=== PATIENT | female | born 1955 | race Caucasian/White ===

== ENCOUNTER → 2019-07-26 11:00 | Outpatient (BNVA) | payer BC, SELFPAY | PROVIDERS: Visit Provider Nurse Practitioner Family | DX: E03.9 Hypothyroidism, unspecified (principal); R19.7 Diarrhea, unspecified | CPT/HCPCS: 81001; 84443 ==

== ENCOUNTER → 2019-08-03 08:07 | Outpatient (BNVA) | payer BC, SELFPAY | PROVIDERS: Visit Provider Nurse Practitioner Family | DX: N02.9 Recurrent and persistent hematuria with unspecified morphologic changes (principal) | CPT/HCPCS: 81001; 87077; 87086; 87186; 87505; 88112 ==

== ENCOUNTER → 2019-12-27 16:16 | Outpatient (BNVA) | payer BC, SELFPAY | PROVIDERS: Visit Provider Nurse Practitioner Family | DX: R31.9 Hematuria, unspecified (principal); E03.9 Hypothyroidism, unspecified; E66.9 Obesity, unspecified; E55.9 Vitamin D deficiency, unspecified; Z79.899 Other long term (current) drug therapy; K21.9 Gastro-esophageal reflux disease without esophagitis; E78.2 Mixed hyperlipidemia | CPT/HCPCS: 80053; 80061; 82306; 83036; 84443; 85025; 87077; 87086; 87186; 88112; 88175 ==

== ENCOUNTER 2020-03-31 14:11 | Outpatient (CLI) | payer BC, SELFPAY ==
--- NOTE | 2020-03-31 14:30 | MM_ITS ---
WS: [id number] Exam: [id number] Date/Time of Exam: 03/31/2020 2:32 PM Reason For Exam: breast cancer screening VIEWS: MLO and CC views both breasts. Comparison made with prior exam of 09/14/2013. Findings: There was no sign of mass, architectural distortion or suspicious calcification in either breast. Sc attered fibroglandular densities MM/[id number] Impression: BI-RADS: 2-Benign FOLLOW-UP: 1 Year Follow-up This mammogram was also analyzed by the Computer Aided Detection System R2 Imag e Embossing Press Operator.
== END 2020-03-31 14:12 | disposition home or self-care (01) ==
LOC: RADSHAW 14:15
PROVIDERS: PCP Nurse Practitioner Family; Visit Provider Nurse Practitioner Family
DX: Z12.31 Encounter for screening mammogram for malignant neoplasm of breast (principal)
CPT/HCPCS: 77067

== ENCOUNTER → 2020-04-24 00:01 | Outpatient (BNVA) | payer BC, SELFPAY | PROVIDERS: PCP Nurse Practitioner Family; Visit Provider Nurse Practitioner Family | DX: E03.9 Hypothyroidism, unspecified (principal); E66.09 Other obesity due to excess calories; Z68.30 Body mass index [BMI] 30.0-30.9, adult | CPT/HCPCS: 84443 ==

== ENCOUNTER → 2021-10-26 09:37 | Outpatient (BNVA) | payer BC, SELFPAY | PROVIDERS: PCP Nurse Practitioner Family; Visit Provider Nurse Practitioner | DX: Z00.00 Encounter for general adult medical examination without abnormal findings (principal); Z12.11 Encounter for screening for malignant neoplasm of colon; L40.9 Psoriasis, unspecified | CPT/HCPCS: 80053; 80061; 82306; 84443; 85025 ==

== ENCOUNTER 2022-01-28 06:28 | Day surgery (SDC) | payer BC, SELFPAY ==
[2022-01-26 09:41] VITALS: BMI 32.1
--- NOTE | 2022-01-28 06:47 | P.HP_ITS ---
Same Day Surgery H&P Indication for Procedure/HPI DATE OF PROCEDURE: January 28, 2022 CHIEF COMPLAINT/INDICATIONFOR SURGICAL PROCEDURE: Screening colonoscopy PREOP DIAGNOSIS: Screening colonoscopy PLANNED PROCEDURE: Operation Date: 01/28/22 08:00 Proposed Procedures p Colonoscopy(Not Applicable) - Emil Fernandez MD 11/05/2021 This is a pleasant 65 years old female patient had a previous colonoscopy about 11 years ago and was normal.? She denies any bleeding per rectum or change in bowel movements or history of colon cancer.She has history of hemorrhoids. Patient is referred to me to discuss screening colonoscopy Interim history 01/28/2022 Patient comes today for screening colonoscopy ROS All systems have been reviewed negative except as for the above or per problem list. Medications/Allergies* Home Medications Medication Instructions Recorded Confirmed Type ascorbate calcium (vitamin C) 500 500 mg PO DAILY 12/27/19 01/28/22 History mg tablet cranberry 400 mg capsule 400 mg PO DAILY 12/27/19 01/28/22 History cholecalciferol (vitamin D3) 25 25 mcg PO ONCE 11/05/21 01/28/22 History mcg (1,000 unit) capsule fish oil 1 tab as directed DAILY 11/05/21 01/28/22 History Allergies/Adverse Reactions Allergy/AdvReac Type Severity Reaction Status Date / Time prednisone Allergy nausea, Verified 01/28/22 06:52 vomiting and diarrhea Pertinent History/Comorbid Conditions* Medical History (Updated 11/08/21 @ 08:57 by Emil Fernandez MD) Breast cancer screening by mammogram GERD (gastroesophageal reflux disease) Hematuria Hypothyroid Influenza vaccination declined by patient Patient believes this causes her to be ill Medication management Migraine with aura Mixed hyperlipidemia Obesity Psoriasis Vitamin D deficiency Vitamin D deficiency Wellness examination Surgical History (Updated 07/05/19 @ 13:46 by GONZÁLEZ Oliveros) S/P appendectomy S/P cholecystectomy S/P tubal ligation Social History Smoking and tobacco status: never smoked Second hand smoke exposure: No Smoking risk assessment/counseling performed?: No Alcohol intake: never Desire information about alcohol rehabilitation?: No Counseling given: No Desire information about substance/drug rehabilitation?: No Counseling given: No Pertinent Exam Findings alert, oriented x 3, regular rate & rhythm and procedure specific exam findings (Abdominal exam nontender nondistended soft) Recommendations Surgery/Procedure today (Colonoscopy with possible biopsy) Coding Level of Care Code Acute Director Of Revenue Cycle Management for Chg Fwd
[2022-01-28 06:54] VITALS: BP 130/88; PULSE 116; RESP 16; TEMP 36.2; O2SAT 97
--- NOTE | 2022-01-28 07:04 | ANES.PREANE2 ---
Pre-Anesthetic Assessment Height/Weight: Height 1.55 m Weight 77.111 kg Temp Pulse Resp BP Pulse Ox O2 Del Method 97.2 F L 116 H 16 130/88 97 01/28/22 06:54 01/28/22 06:54 01/28/22 06:54 01/28/22 06:54 01/28/22 06:54 01/28/22 06:54 Preop Diagnosis: Screening colonoscopy Operation Date: 01/28/22 08:00 Proposed Procedures p Colonoscopy(Not Applicable) - Emil Fernandez MD Familial anesthetic complications: None Was Beta Jia taken within 24 hours: N/A Was Clonidine taken within 24 hours: N/A Last intake: > 8hrs Social No alcohol and No tobacco Exam alert, oriented x 3, clear to auscultation bilaterally and regular rate & rhythm Airway Mallampati: Class I Dentition: partials GI Gastroesophageal Reflux Disease Metabolic Hyperlipidemia and Thyroid Disease Anesthetic Plan ASA status: 2 Risk of > 500 ml blood loss (7ml/kg in children): No Medications/Allergies Home Medications Medication Instructions Recorded Confirmed Last Taken Type ascorbate calcium (vitamin C) 500 500 mg PO DAILY 12/27/19 01/28/22 01/27/22 History mg tablet cranberry 400 mg capsule 400 mg PO DAILY 12/27/19 01/28/22 01/27/22 History triamcinolone acetonide 0.1 % See Rx Instructions .Route 10/26/21 01/28/22 01/27/22 Rx topical cream .COMPLEX #30 grams levothyroxine 100 mcg capsule 100 mcg PO DAILY #30 caps 10/27/21 01/28/22 01/27/22 Rx cholecalciferol (vitamin D3) 25 25 mcg PO ONCE 11/05/21 01/28/22 01/27/22 History mcg (1,000 unit) capsule fish oil 1 tab as directed DAILY 11/05/21 01/28/22 01/27/22 History cimetidine 400 mg tablet See Rx Instructions .Route 12/03/21 01/28/22 01/27/22 Rx .COMPLEX #90 tabs pantoprazole 40 mg tablet,delayed See Rx Instructions .Route 12/22/21 01/28/22 01/27/22 Rx release .COMPLEX #30 tabs Allergies Allergy/AdvReac Type Severity Reaction Status Date / Time prednisone Allergy nausea, Verified 01/28/22 06:52 vomiting and diarrhea PFSH Anesthesia Medical History Breast cancer screening by mammogram GERD (gastroesophageal reflux disease) Hematuria Hypothyroid Influenza vaccination declined by patient Patient believes this causes her to be ill Medication management Migraine with aura Mixed hyperlipidemia Obesity Psoriasis Vitamin D deficiency Vitamin D deficiency Wellness examination Surgical History S/P appendectomy S/P cholecystectomy S/P tubal ligation Social History Smoking and tobacco status: never smoked Second hand smoke exposure: No Smoking risk assessment/counseling performed?: No Alcohol intake: never Desire information about alcohol rehabilitation?: No Counseling given: No Desire information about substance/drug rehabilitation?: No Counseling given: No Female Reproductive History Para: 1 Date of menopause: 05/23/14 Data Anesthesia Cardiac Studies: No Data to Display
[2022-01-28] MEDS: sodium chloride 0.9% 1,000 ML 30 ML IV (07:07)
[2022-01-28 08:49] VITALS: BP 104/84; PULSE 106; RESP 16; TEMP 36.2; O2SAT 100
[2022-01-28 09:00] VITALS: BP 113/90; PULSE 100; RESP 16; O2SAT 100
== END 2022-01-28 09:20 | disposition home or self-care (01) ==
PROVIDERS: PCP Nurse Practitioner; Visit Provider Surgery
PROC: 0DJD8ZZ Inspection of Lower Intestinal Tract, Via Natural or Artificial Opening Endoscopic (ICD-10-PCS; CPT 45378; principal; 2022-01-28 08:00)
DX: Z12.11 Encounter for screening for malignant neoplasm of colon (principal); K62.1 Rectal polyp; K57.30 Diverticulosis of large intestine without perforation or abscess without bleeding; K21.9 Gastro-esophageal reflux disease without esophagitis; E03.9 Hypothyroidism, unspecified; E78.2 Mixed hyperlipidemia
CPT/HCPCS: 45380; 88305; J2704; J3490; J7030

== ENCOUNTER 2022-02-08 16:15 | Emergency (ER) | payer BC, SELFPAY ==
[2022-02-08 16:33] VITALS: BP 135/94; PULSE 86; RESP 16; TEMP 36.3; O2SAT 94
[2022-02-08 17:41] VITALS: BP 150/87; PULSE 91; RESP 17; O2SAT 97
[2022-02-08 18:30] LABS: Bilirubin Urine Neg (Negative); Blood Urine 2+ (Negative); Glucose Urine UA Norm (Normal); Ketones Urine Negative (Negative); Nitrate Urine Negative (Negative); Protein Urine Neg (Negative); Specific Gravity, Urine 1.015 (1.005-1.030); Urine Appearance Clear (CLEAR); Urine Color Straw (Yellow); pH Urine 5 (5-7)
[2022-02-08 18:31] LABS: Add Urine Culture? No; Add Urine Microscopic? YES; Bacteria Urine TRACE /hpf; Leukocyte Esterase Urine Negative (Negative); RBC Urine 0-4 /hpf (0-2); Urobilinogen Urine Norm (Negative); WBC Urine 0-4 /hpf (0-5)
--- NOTE | 2022-02-08 18:47 | CTR_ITS ---
PROCEDURE INFORMATION: Exam: CT Abdomen And Pelvis Without Contrast Exam date and time: 02/08/2022 6:57 PM Age: 66 years old Clinical indication: Abdominal pain; Flank; Left; Prior surgery; Surgery date: 6+ months; Surgery type: Appendectomy, cholecystectomy; Additional info: Flank pain TECHNIQUE: Imaging protocol: Computed tomography of the abdomen and pelvis without contrast. Radiation optimization: All CT scans at this facility use at least one of these dose optimization techniques: automated exposure control; mA and/or kV adjustment per patient size (includes targeted exams where dose is matched to clinical indication); or iterative reconstruction. COMPARISON: CT abdomen pelvis w con* [id number] 09/20/2017 2:39 AM RADIATION DOSE METRICS: Total DLP (mGy-cm): 735.4 FINDINGS: Diaphragm: Small to moderate hiatal hernia. Liver: Normal. No mass. Gallbladder and bile ducts: Cholecystectomy. Pancreas: Normal. No ductal dilation. Spleen: Normal. No splenomegaly. Adrenal glands: Normal. No mass. Kidneys and ureters: Normal. No hydronephrosis. Stomach and bowel: Constipation. Appendix: No evidence of appendicitis. Intraperitoneal space: Unremarkable. No free air. No significant fluid collection. Vasculature: Unremarkable. No abdominal aortic aneurysm. Lymph nodes: Unremarkable. No enlarged lymph nodes. Urinary bladder: Unremarkable as visualized. Reproductive: Unremarkable as visualized. 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 Soft tissues: Unremarkable. CT/CT abdomen pelvis wo con [id number] IMPRESSION: 1. Negative for acute inflammatory process in the abdomen or pelvis. 2. Small to moderate hiatal hernia. 3. Cholecystectomy. 4. Constipation. 5. 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
[2022-02-08 19:48] VITALS: BP 147/85; PULSE 67; RESP 17; O2SAT 97
[2022-02-08] MEDS: dexamethasone 10 mg/mL INJ IM (20:28)
[2022-02-08] MEDS: cyclobenzaprine 10 mg Tablet 5 MG PO (20:34)
--- NOTE | 2022-02-09 01:07 | W.ED.BACK ---
HPI - Back Pain/Injury General: Chief Complaint: Back Pain/Injury Stated Complaint: Back pain Time Seen by Provider: 02/08/22 17:40 History of Present Illness: 66-year-old female patient presents to the emergency department complaining of low back pain. Patient states she did not have any injury or trauma but woke up and got up from sitting on the toilet and had back pain in the lumbar area located more to the left side. Patient is noted to have mild flank tenderness. Patient denies any fever. Patient denies any chest pain or shortness of breath. Patient denies any nausea vomiting. Patient denies any numbness or tingling. Patient denies any loss of bowel or bladder. Associated symptoms: Deny abdominal pain, chills, change in bowel habits, difficulty walking, dysuria, fatigue, fever(s), hematuria, nausea, syncope, urinary urgency or vomiting Review of Systems Const: Denies: fever(s), chills, body aches, change in appetite, change in weight, fatigue, malaise or diaphoresis Eyes: Denies: change in vision, blurry vision, blind spots, photophobia, eye discomfort, eye discharge, eye redness, floaters or seeing flashes ENMT: Denies: throat pain, uvular edema, enlarged tonsils, odynophagia, hoarseness, mouth pain, swelling of lips/tongue, oral sores, bleeding gums, dental pain, dry mouth, ear or mastoid pain, ear discharge, change in hearing, tinnitus, disequilibrium, nasal discharge, nasal congestion, post nasal drip or sinus pain Card: Denies: chest pain, palpitations, irregular heart rhythm, edema, swelling of feet/ankles, lightheadedness, syncope, pre-syncope, dyspnea on exertion, orthopnea, leg pain with exertion or acrocyanosis Resp: Denies: dyspnea, productive cough, non-productive cough, wheezing, stridor, pain on inspiration, change in phlegm color, hemoptysis or chest congestion GI: Denies: abdominal pain, nausea, vomiting, hematemesis, dysphagia, diarrhea, constipation, GI cramping, change in bowel habits or rectal pain : Denies: flank pain, difficulty voiding, dysuria, urinary frequency, urinary urgency, urinary hesitancy or hematuria Musc: Denies: neck pain, extremity pain, extremity swelling, joint pain, joint swelling, joint redness, joint warmth or deformity Skin/Breast: Denies: rash, pruritus, erythema, sores, new lesions, changes in skin color or dry skin Neuro: Denies: headache(s), numbness in extremities, weakness in extremities, sensory changes, lack of coordination, difficulty walking, frequent falls, dizziness, vertigo, confusion, behavioral changes, Slurred speech present, difficulty communicating thoughts or seizure-like activity Psych: Denies: anxiety, depression, suicidal ideation or homicidal ideation Endo: Denies: polyuria, polydipsia, tired all the time, cold intolerance, excessive sweating, flushing, hot flashes or heat intolerance Gurvinder/Lymph: Denies: easy bruising, easy bleeding, petechiae, purpura, enlarged lymph nodes or tender lymph nodes All/Imm: Denies: urticaria, throat swelling, tongue swelling, facial swelling, acute wheezing or itchy eyes PFSH ED PFSH: Medical History Breast cancer screening by mammogram GERD (gastroesophageal reflux disease) Hematuria Hypothyroid Influenza vaccination declined by patient Patient believes this causes her to be ill Medication management Migraine with aura Mixed hyperlipidemia Obesity Psoriasis Vitamin D deficiency Vitamin D deficiency Wellness examination Surgical History S/P appendectomy S/P cholecystectomy S/P tubal ligation Social History Smoking and tobacco status: never smoked Second hand smoke exposure: No Smoking risk assessment/counseling performed?: No Alcohol intake: never Desire information about alcohol rehabilitation?: No Counseling given: No Desire information about substance/drug rehabilitation?: No Counseling given: No Female Reproductive History: Para: 1 Date of menopause: 05/23/14 Physical Exam Const: COMMON NORMALS: no acute distress, patient oriented x3, healthy appearing, alert and well nourished GENERAL APPEARANCE: cooperative, comfortable, well kempt and well developed; not ill appearing ORIENTATION/CONSCIOUSNESS: Yes awake, Yes oriented to person, Yes oriented to place and Yes oriented to time HENMT: COMMON NORMALS: normocephalic, atraumatic, hearing grossly normal bilaterally, external ears normal, EAC's normal, TM's normal bilaterally, Normal external nose present, Normal nasal mucous membranes and turbinates present and moist oral mucous membranes HEAD & SCALP: normal to inspection, normocephalic and atraumatic FACE & SINUS: normal facial exam, sinuses nontender and face symmetric NOSE: Normal external nose present, Normal nares present, Normal nasal mucous membranes and turbinates present, No nasal discharge present and Abnormal external nose present EXTERNAL EAR: Yes external ears normal and Yes mastoids normal EXTERNAL AUDITORY CANAL: EAC's normal TYMPANIC MEMBRANE: TM's normal bilaterally MOUTH: Normal oral and palatal mucosa present, lip normal, tongue normal and Normal salivary glands and ducts present THROAT: no uvular edema Eye: COMMON NORMALS: Equal, round and reactive pupils present, EOMs intact bilaterally, conjunctivae normal, no scleral icterus and no papilledema GENERAL EYE: appearance normal, both eyes and all related structures EYELID: eyelids normal CONJUNCTIVA: Yes conjunctivae normal SCLERA: sclerae normal CORNEA: Yes corneas normal PUPIL: Yes Equal, round and reactive pupils present DIRECT OPHTHALMOSCOPY: Yes no papilledema Neck/C-Spine: COMMON NORMALS: full ROM, no lymphadenopathy, supple, no meningeal signs, no JVD and Thyroid normal GENERAL: Yes normal visual inspection and Yes trachea midline THYROID: Thyroid normal CERVICAL SPINE: Yes cervical ROM normal Lymph: LYMPHATIC: no lymphadenopathy noted and no lymphedema noted Chest: COMMONS NORMALS: normal inspection of the chest and normal palpation of entire chest wall Resp: COMMON NORMALS: normal respiratory effort, No retractions, No use of accessory muscles and clear to auscultation bilaterally EFFORT & INSPECTION: Yes able to speak in complete sentences and Yes symmetric chest movement AUSCULTATION: clear to auscultation bilaterally Cardio: COMMON NORMALS: no JVD, regular rate and regular rhythm RATE: regular rate RHYTHM: regular rhythm GI: COMMON NORMALS: Normal to inspection, nondistended, normoactive bowel sounds present, Soft to palpation, non-tender, No hepatosplenomegaly present, no masses and no bruits INSPECTION: Yes normal to inspection AUSCULTATION: Yes normoactive bowel sounds PALPATION: Yes Soft to palpation and Yes No hepatosplenomegaly present PERCUSSION: normal to percussion RECTAL EXAM: deferred : COMMON NORMALS: Yes no CVA tenderness, Yes normal external appearance, Yes normal appearance of the vagina, Yes normal appearance of the cervix, Yes No adnexal tenderness and Yes no masses BLADDER/KIDNEY EXAM: Yes no CVA tenderness Back/Pelvis: COMMON NORMALS: no CVA tenderness, thoracic and lumbar spine normal to inspection, no thoracic nor lumbar tenderness, thoraco-lumbar ROM normal and straight leg raise negative bilaterally THORACIC SPINE/UPPER BACK: Yes normal to inspection LUMBAR SPINE/LOWER BACK: Yes normal to inspection Extremity: COMMON NORMALS: normal to inspection, full ROM and capillary refill normal GENERAL: Yes normal exam except as noted Neuro: COMMON NORMALS: patient oriented x3, CN's II-XII intact bilaterally, moves all extremities, no focal motor deficits, no sensory deficits noted, deep tendon reflexes 2+ bilaterally and gait normal SENSORIUM/ORIENTATION: Yes alert, Yes oriented to person, Yes oriented to place and Yes oriented to time MENINGEAL SIGNS: Yes no meningeal signs CRANIAL NERVES: Yes CN normal except as noted SPEECH: speech normal GAIT: Yes Normal gait present SENSORY EXAM: Yes extremities MOTOR EXAM: 5/5 motor strength present throughout Psych: COMMON NORMALS: mental status grossly normal, Normal thought process present, cooperative, normal affect, speech normal, activity/motor behavior normal, denies hallucinations, denies homicidal ideation and denies suicidal ideation APPEARANCE: Yes grossly normal and Yes well kempt ATTITUDE: Yes calm ACTIVITY/MOTOR BEHAVIOR: Yes appropriate eye contact SPEECH: Yes normal speech THOUGHT PROCESS: Normal thought process present THOUGHT CONTENT: Yes Normal thought content present ATTENTION/CONCENTRATION: Yes attention grossly intact MEMORY/COGNITION: Yes memory grossly intact INSIGHT: Good insight present (Psych) JUDGEMENT: Good judgement present (Psych) Skin: COMMON NORMALS: no rashes or lesions noted, no wounds, turgor normal, no jaundice, no petechiae and no mottling GENERAL SKIN EXAM: no rashes or lesions noted and turgor normal Course Vital Signs: Vital signs: Vital Signs Temperature 97.3 F L 02/08/22 16:33 Pulse Rate 67 02/08/22 19:48 Respiratory Rate 17 02/08/22 19:48 Blood Pressure 147/85 02/08/22 19:48 Pulse Oximetry 97 02/08/22 19:48 Oxygen Delivery Me thod 02/08/22 19:48 MDM - Back Pain/Injury Medical Decision Making Patient is well-appearing nontoxic and in no acute distress.66-year-old female patient presents to the emergency department complaining of low back pain. Patient states she did not have any injury or trauma but woke up and got up from sitting on the toilet and had back pain in the lumbar area located more to the left side. Patient is noted to have mild flank tenderness. Patient denies any fever. Patient denies any chest pain or shortness of breath. Patient denies any nausea vomiting. Patient denies any numbness or tingling. Patient denies any loss of bowel or bladder. Patient does have blood noted in her urine I will go ahead and CT abdomen pelvis without contrast at this time to evaluate for a kidney stone. Patient CT is negative for any acute inflammatory process there is a small hiatal hernia noted patient does have evidence of constipation there are no other acute findings noted on CT. Patient's urine is without infection. Given patient's hematuria I did advise patient she needs to follow-up with her urologist to tomorrow or the next day for evaluation of hematuria and make sure that this resolves and to have further testing if needed or indicated. I did discuss with patient return precautions as well as home care I do not feel patient needs any further testing at this time Labs Radiology Impressions Abdomen/Pelvis CT 02/08/22 18:47 IMPRESSION: 1. Negative for acute inflammatory process in the abdomen or pelvis. 2. Small to moderate hiatal hernia. 3. Cholecystectomy. 4. Constipation. 5. 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 Laboratory Results Urine Color Straw (Yellow) 02/08/22 18:00 Urine Appearance Clear (CLEAR) 02/08/22 18:00 Urine pH 5 (5-7) 02/08/22 18:00 Ur Specific [place] 1.015 (1.005-1.030) 02/08/22 18:00 Urine Protein Neg (Negative) 02/08/22 18:00 Urine Glucose (UA) Norm (Normal) 02/08/22 18:00 Urine Ketones Negative (Negative) 02/08/22 18:00 Urine Blood 2+ (Negative) H 02/08/22 18:00 Urine Nitrate Negative (Negative) 02/08/22 18:00 Urine Bilirubin Neg (Negative) 02/08/22 18:00 Urine Urobilinogen Norm mg/dL (Negative) 02/08/22 18:00 Ur Leukocyte Esterase Negative (Negative) 02/08/22 18:00 Urine RBC 0-4 /hpf (0-2) H 02/08/22 18:00 Urine WBC 0-4 /hpf (0-5) H 02/08/22 18:00 Ur Squamous Epith Cells 5-10 /hpf (0-5) H 02/08/22 18:00 Amorphous Sediment Not Reportable 02/08/22 18:00 Urine Bacteria Trace /hpf (NONE) 02/08/22 18:00 Discharge Plan Discharge Patient Disposition: Home Clinical Impression: Back pain, Hematuria Condition: Stable Prescriptions: New cyclobenzaprine 5 mg tablet 5 mg PO Q8H Qty: 10 0RF No Action cranberry 400 mg capsule 400 mg PO DAILY Rx Instructions: administer with a meal ascorbate calcium (vitamin C) 500 mg tablet 500 mg PO DAILY triamcinolone acetonide 0.1 % cream See Rx Instructions .ROUTE .COMPLEX Qty: 30 0RF Dose Instruction: APPLY CREAM EXTERNALLY TO AFFECTED AREA THREE TIMES DAILY NEEDED FOR BITES Rx Instructions: APPLY CREAM EXTERNALLY TO AFFECTED AREA THREE TIMES DAILY NEEDED FOR BITES levothyroxine 100 mcg capsule 100 mcg PO DAILY Qty: 30 3RF fish oil 1 tab as directed DAILY cholecalciferol (vitamin D3) 25 mcg (1,000 unit) capsule 25 mcg PO ONCE cimetidine 400 mg tablet See Rx Instructions .ROUTE .COMPLEX Qty: 90 1RF Dose Instruction: TAKE 1 TABLET BY MOUTH DAILY WITH A MEAL Rx Instructions: TAKE 1 TABLET BY MOUTH DAILY WITH A MEAL pantoprazole 40 mg tablet,delayed release (DR/EC) See Rx Instructions .ROUTE .COMPLEX Qty: 30 2RF Dose Instruction: Take 1 tablet by mouth once daily Rx Instructions: Take 1 tablet by mouth once daily Discharge Orders: Discharge ED (Routine); Ordered 02/08/22 Ordered By: Sisi Casarez Referrals: Celia Maxwell FNP [Primary Care Provider] - Discharge Diet: Advance as tolerated Discharge Activity: Increase activity as tolerated Patient Instructions: Opioid Safety, Pain Management Activity Restrictions/Additional Instructions: Please follow up with Urology - pillowcase maker will call you with appointmen time Do not take Flexeril while driving or operating heavy machinery and do not drink alcohol while taking return to ER with any worsening of symptoms Coding Level of Care Code ED Chief Innovation Officer for Sadiq Tuttle
--- NOTE | 2022-02-09 10:36 | DCPLANNER ---
Addendum entered by Marian Lopez 05/12/22 11:30: Patient had a follow up appointment scheduled with urology - patient did attend appointment. Addendum entered by Marian Lopez 02/24/22 15:46: Patient has a follow up appointment scheduled for Tuesday, March 17, 2022 at 3:00 with Ghazal Zacarias at urology. Clinic will call patient with appointment information. Original Note: pilot manager had message to schedule a follown up appointment for patient with urology. pilot manager sent patients information to the front office staff at urology. Patients information will be printed and reviewed. Clinic will call patient with appointment information.
== END 2022-02-08 20:50 | disposition home or self-care (01) ==
PROVIDERS: Emergency Provider Registered Nurse; PCP Nurse Practitioner
DX: M54.9 Dorsalgia, unspecified (principal); R31.9 Hematuria, unspecified; E78.2 Mixed hyperlipidemia
CPT/HCPCS: 74176; 81001; 96372; 99285; J1100

== ENCOUNTER → 2022-03-17 15:12 | Outpatient (BNVA) | payer BC, SELFPAY | PROVIDERS: PCP Nurse Practitioner; Visit Provider Nurse Practitioner Family | DX: R31.9 Hematuria, unspecified (principal) | CPT/HCPCS: 81003 ==

== ENCOUNTER → 2022-06-28 13:13 | Outpatient (BNVA) | payer BC, SELFPAY | PROVIDERS: PCP Nurse Practitioner; Visit Provider Urology | DX: N39.41 Urge incontinence (principal); R31.9 Hematuria, unspecified | CPT/HCPCS: 81003 ==

== ENCOUNTER → 2022-07-13 13:57 | Outpatient (BNVA) | payer BC, SELFPAY | PROVIDERS: PCP Nurse Practitioner; Visit Provider Nurse Practitioner | DX: E03.9 Hypothyroidism, unspecified (principal); Z79.899 Other long term (current) drug therapy | CPT/HCPCS: 80053 ==

== ENCOUNTER → 2022-10-07 08:36 | Outpatient (BNVA) | payer BC, SELFPAY | PROVIDERS: PCP Nurse Practitioner; Visit Provider Nurse Practitioner | DX: E03.9 Hypothyroidism, unspecified (principal); E78.2 Mixed hyperlipidemia; E55.9 Vitamin D deficiency, unspecified; Z79.899 Other long term (current) drug therapy | CPT/HCPCS: 80053; 80061; 82306; 84443; 85025 ==

== ENCOUNTER 2022-10-22 08:34 | Outpatient (CLI) | payer BC, SELFPAY ==
--- NOTE | 2022-10-22 08:39 | MM_ITS ---
WS: [id number] VIEWS: MLO and CC views both breasts. 3D digital tomosynthesis is also included in this exam. Comparison made with prior exam of 09/14/2013, 03/31/2020.. Findings: There was no sign of mass, architectural distortion or suspicious calcification in either breast. Sc attered areas of fibroglandular density MM/[place] [id number] Impression: BI-RADS: 2-Benign finding. FOLLOW-UP: 1 Year Follow-up This mammogram was also analyzed by the Computer Aided Detection System R2 Imag e Geographic Analyst.
== END 2022-10-22 08:35 | disposition home or self-care (01) ==
LOC: RAD 08:36
PROVIDERS: PCP Nurse Practitioner; Visit Provider Nurse Practitioner
DX: Z12.31 Encounter for screening mammogram for malignant neoplasm of breast (principal)
CPT/HCPCS: 77063; 77067

== ENCOUNTER → 2022-12-23 08:36 | Outpatient (BNVA) | payer MEDICARE, SELFPAY | PROVIDERS: PCP Nurse Practitioner; Visit Provider Nurse Practitioner | DX: S46.912A Strain of unspecified muscle, fascia and tendon at shoulder and upper arm level, left arm, initial encounter (principal); X58.XXXA Exposure to other specified factors, initial encounter | CPT/HCPCS: 73030 ==

== ENCOUNTER → 2023-09-22 09:06 | Outpatient (BNVA) | payer MEDICARE, SELFPAY | PROVIDERS: PCP Nurse Practitioner; Visit Provider Nurse Practitioner | DX: Z00.00 Encounter for general adult medical examination without abnormal findings (principal); E03.9 Hypothyroidism, unspecified; Z79.899 Other long term (current) drug therapy | CPT/HCPCS: 80053; 80061; 83036; 84443; 85025 ==

== ENCOUNTER → 2024-09-03 09:10 | Outpatient (BNVA) | payer MEDICARE, SELFPAY | PROVIDERS: PCP Nurse Practitioner; Visit Provider Nurse Practitioner | DX: E03.9 Hypothyroidism, unspecified (principal); E66.09 Other obesity due to excess calories; Z68.30 Body mass index [BMI] 30.0-30.9, adult; Z79.899 Other long term (current) drug therapy; E55.9 Vitamin D deficiency, unspecified | CPT/HCPCS: 80053; 80061; 82306; 84443; 85025 ==

== ENCOUNTER 2024-09-14 09:07 | Outpatient (CLI) | payer MEDICARE, SELFPAY ==
--- NOTE | 2024-09-14 09:40 | MM_ITS ---
WS: [id number] BILATERAL SCREENING DIGITAL TOMOSYNTHESIS MAMMOGRAM WITH CAD HISTORY: Z12.39 - Encounter for other screening for malignant neop... COMPARISON: 10/22/2022, 03/31/2020 Bilateral CC and MLO views with tomosynthesis and synthetic mammography submitted. Computer aided detection analyzed. Breast composition: There are scattered areas of fibroglandular density. No suspicious masses, microcalcifications or architectural distortion. MM/MM scr BI tomosynthesis [id number] IMPRESSION: BI-RADS: 2 - Benign. FOLLOW UP: 1 Year Follow-up
== END 2024-09-14 09:08 | disposition home or self-care (01) ==
LOC: RAD 09:08
PROVIDERS: PCP Nurse Practitioner; Visit Provider Nurse Practitioner
DX: Z12.39 Encounter for other screening for malignant neoplasm of breast (principal); R92.323 Mammographic fibroglandular density, bilateral breasts
CPT/HCPCS: 77063; 77067

== ENCOUNTER → 2024-10-01 09:00 | Outpatient (BNVA) | payer MEDICARE, SELFPAY | PROVIDERS: PCP Nurse Practitioner; Visit Provider Nurse Practitioner | DX: E03.9 Hypothyroidism, unspecified (principal) | CPT/HCPCS: 84439; 84443; 84481 ==

== ENCOUNTER → 2024-11-20 09:32 | Outpatient (BNVA) | payer MEDICARE, SELFPAY | PROVIDERS: PCP Nurse Practitioner; Visit Provider Nurse Practitioner | DX: Z79.899 Other long term (current) drug therapy (principal) | CPT/HCPCS: 84443 ==

== ENCOUNTER → 2025-01-24 10:39 | Outpatient (BNVA) | payer MEDICARE, SELFPAY | PROVIDERS: PCP Nurse Practitioner; Referring Provider Nurse Practitioner; Visit Provider Nurse Practitioner | DX: E03.9 Hypothyroidism, unspecified (principal); Z79.899 Other long term (current) drug therapy | CPT/HCPCS: 84443 ==